=== PATIENT | female | born 1965 | race Caucasian/White ===

== ENCOUNTER 2019-06-07 06:20 | Day surgery (SDC) | payer OTHER ==
[~2019-06-07] VITALS: Ht 154.9 cm; Wt 52.2 kg
[~2019-06-07 06:20] MED LIST: RANI-287 PO
[2019-06-07] MEDS ORDERED: LIDOCAINE 2% 100 MG/5 ML UJET TP ONE (07:20)
[2019-06-07] MEDS ORDERED: fentaNYL 0.05 MG/ML VIAL ONE (07:20)
[2019-06-07] MEDS ORDERED: fentaNYL 0.05 MG/ML VIAL IVP ONE (08:50)
== END 2019-06-07 09:00 | disposition home or self-care (01) ==
LOC: MDS 06:20 → MMU 06:21 → MDS 09:00
PROVIDERS: ATTEND Internal Medicine Gastroenterology
DX: K59.00 Constipation, unspecified (principal); D12.5 Benign neoplasm of sigmoid colon; K63.89 Other specified diseases of intestine; Z88.0 Allergy status to penicillin
CPT/HCPCS: 45385; J3010